=== PATIENT | female | born 1965 | race African-American/Black ===

== ENCOUNTER 2017-04-18 05:36 | Day surgery (SDC) | payer BC, OTHER ==
[~2017-04-18] VITALS: Ht 157.5 cm; Wt 44.8 kg
[~2017-04-18 05:36] MED LIST: AMLO-145 PO; ONDA4TAB96 PO; PANT40TA3 PO; SUMA25TA34 PO
--- NOTE | 2017-04-18 07:49 | OPPN ---
Date/Time of Note Date/Time of Note DATE: 04/18/17 TIME: 07:48 Operative Report Preoperative Diagnosis Abdominal pain Postoperative Diagnosis Status post partial gastrectomy Anastomotic ulcers Gastritis Residual food in the stomach Operation/Procedure Performed Esophagogastroduodenoscopy and biopsy Surgeon see signature line anesthetic assistant None Anesthesia: moderate sedation Estimated blood loss: none Transfusion Required none Specimen Gastric mucosal biopsy Grafts/Implants none Complications none YOANDY SHEN MD Apr 18, 2017 07:49
--- NOTE | 2017-04-18 07:49 | OPPN ---
Date/Time of Note Date/Time of Note DATE: 04/18/17 TIME: 07:48 Operative Report Preoperative Diagnosis Abdominal pain Postoperative Diagnosis Status post partial gastrectomy Anastomotic ulcers Gastritis Residual food in the stomach Operation/Procedure Performed Esophagogastroduodenoscopy and biopsy Surgeon see signature line prosthetic assistant None Anesthesia: moderate sedation Estimated blood loss: none Transfusion Required none Specimen Gastric mucosal biopsy Grafts/Implants none Complications none YOANDY SHEN MD Apr 18, 2017 07:49
--- NOTE | 2017-04-18 07:49 | OPPN ---
Date/Time of Note Date/Time of Note DATE: 04/18/17 TIME: 07:48 Operative Report Preoperative Diagnosis Abdominal pain Postoperative Diagnosis Status post partial gastrectomy Anastomotic ulcers Gastritis Residual food in the stomach Operation/Procedure Performed Esophagogastroduodenoscopy and biopsy Surgeon see signature line grants and contracts assistant None Anesthesia: moderate sedation Estimated blood loss: none Transfusion Required none Specimen Gastric mucosal biopsy Grafts/Implants none Complications none YOANDY SHEN MD Apr 18, 2017 07:49
[2017-04-18] MEDS ORDERED: FENTAnyl 50 MCG/ML VIAL ONE (07:54)
[2017-04-18] MEDS ORDERED: MIDAZOLAM 1 MG/ML 2 ML INJ ONE ×2 (07:54)
[2017-04-18 08:11] VITALS: BP 112/79; RESP 14
--- NOTE | 2017-04-18 09:13 | GILP ---
DATE OF PROCEDURE: 04/18/2017 NAME OF PROCEDURE: Esophagogastroduodenoscopy and biopsy. SURGEON: Yoandy Farrell MD PREOPERATIVE DIAGNOSIS: Abdominal pain. POSTOPERATIVE DIAGNOSES 1. Status post partial gastrectomy. 2. Multiple anastomotic ulcers. 3. Gastritis. 4. Gastric mucosal biopsies were taken for Helicobacter pylori test. 5. Residual food in the stomach. INDICATION FOR THE PROCEDURE: Ms. Sue Knight is a 52-year-old female patient who had upper ab dominal pain, not responding to therapy. She had history of gastric ulcers for which she has underg one surgery. The procedure and possible complications are well explained to the patient, she understood and conse nted to the procedure. DESCRIPTION OF PROCEDURE: Under the influence of fentanyl and Versed, the gastroscope was carefully introduced into the esophagus and under direct vision, it was advanced to the stomach and through t he anastomosis into the small bowel loops. FINDINGS: ESOPHAGUS: Normal. STOMACH: The patient was status post partial gastrectomy. She had some residual food in the stomac h. She had gastritis. Gastric mucosal biopsies were taken for H. pylori test. DUODENUM: The patient had multiple anastomotic ulcers. She tolerated the procedure very well and there were no complication from the procedure. At the end of the procedures, she was awake with stable vital signs and she was discharged home to the care of her family. IMPRESSION: Please see postoperative diagnoses. PLAN: 1. Nexium 24 hours p.o. q.a.m. 2. Carafate 1 g p.o. t.i.d. a.c. 3. Await Helicobacter pylori test report. Dictated By: YOANDY LUDWIG/WICHO Conf#: [id number] DID#: [id number]
--- NOTE | 2017-04-19 09:19 | CONS ---
DATE OF ADMISSION: 04/18/2017 DATE OF CONSULTATION: PATIENT NAME: SUE KNIGHT PREOPERATIVE GASTROENTEROLOGY CONSULTATION NOTE Thank you very much for this kind referral. HISTORY OF PRESENT ILLNESS: Ms. Sue nKight is a 52-year-old female patient who has been refer red to me for further evaluation of upper abdominal pain, not completely responding to therapy with pantoprazole 40 mg twice a day. The patient has history of gastric ulcer for which she has undergon e surgery twice. She is not on any nonsteroidal anti-inflammatory agents. Her appetite has been so mewhat poor, but there is no significant weight loss. She is status post cholecystectomy, no histor y of liver disease. She is hypertensive. No heart disease, lung problem or kidney disease. The pat ient had colonoscopy 2 years ago, done by another chief solution architect, and no colon neoplasm was iden tified. She is a smoker. She denies alcohol abuse. She is status post cholecystectomy, hysterecto my and surgeries for small-bowel obstruction. NO DRUG ALLERGIES. MEDICATIONS: Pantoprazole, amlodipine. She is 5 feet 2 inches tall, weighs 95 pounds. Normal heart sounds. Lungs are clear. Abdomen soft. No masses. Normal bowel sounds. Normal neurologic exam. IMPRESSION: 1. Upper abdominal pain, not responding to therapy with pantoprazole 40 mg p.o. b.i.d. 2. Status post surgery twice for gastric ulcers. 3. The patient had a negative colonoscopy 2 years ago. 4. Hypertension. 5. Status post cholecystectomy and hysterectomy and surgery for small-bowel obstruction. 6. The patient is a smoker. PLAN: 1. The patient was strongly advised to stop smoking. 2. Continue pantoprazole. 3. Endoscopic examination for further evaluation. The procedure and possible complications are well explained to the patient. She understands and con sents to the procedure. I thank you once again. With warmest personal regards, Dictated By: YOANDY LUDWIG/WICHO Conf#: [id number] DID#: [id number]
--- NOTE | 2017-04-19 09:19 | CONS ---
DATE OF ADMISSION: 04/18/2017 DATE OF CONSULTATION: PATIENT NAME: SUE KNIGHT PREOPERATIVE GASTROENTEROLOGY CONSULTATION NOTE Thank you very much for this kind referral. HISTORY OF PRESENT ILLNESS: Ms. Sue Knight is a 52-year-old female patient who has been refer red to me for further evaluation of upper abdominal pain, not completely responding to therapy with pantoprazole 40 mg twice a day. The patient has history of gastric ulcer for which she has undergon e surgery twice. She is not on any nonsteroidal anti-inflammatory agents. Her appetite has been so mewhat poor, but there is no significant weight loss. She is status post cholecystectomy, no histor y of liver disease. She is hypertensive. No heart disease, lung problem or kidney disease. The pat ient had colonoscopy 2 years ago, done by another operator assistant i cementing, and no colon neoplasm was iden tified. She is a smoker. She denies alcohol abuse. She is status post cholecystectomy, hysterecto my and surgeries for small-bowel obstruction. NO DRUG ALLERGIES. MEDICATIONS: Pantoprazole, amlodipine. She is 5 feet 2 inches tall, weighs 95 pounds. Normal heart sounds. Lungs are clear. Abdomen soft. No masses. Normal bowel sounds. Normal neurologic exam. IMPRESSION: 1. Upper abdominal pain, not responding to therapy with pantoprazole 40 mg p.o. b.i.d. 2. Status post surgery twice for gastric ulcers. 3. The patient had a negative colonoscopy 2 years ago. 4. Hypertension. 5. Status post cholecystectomy and hysterectomy and surgery for small-bowel obstruction. 6. The patient is a smoker. PLAN: 1. The patient was strongly advised to stop smoking. 2. Continue pantoprazole. 3. Endoscopic examination for further evaluation. The procedure and possible complications are well explained to the patient. She understands and con sents to the procedure. I thank you once again. With warmest personal regards, Dictated By: YOANDY LUDWIG/WICHO Conf#: [id number] DID#: [id number]
== END 2017-04-18 11:57 | disposition home or self-care (01) ==
LOC: GIL 05:36
PROVIDERS: ATTEND Internal Medicine Gastroenterology
DX: K29.70 Gastritis, unspecified, without bleeding (principal); K26.9 Duodenal ulcer, unspecified as acute or chronic, without hemorrhage or perforation; I10 Essential (primary) hypertension; F17.200 Nicotine dependence, unspecified, uncomplicated; Z90.49 Acquired absence of other specified parts of digestive tract; Z90.710 Acquired absence of both cervix and uterus
CPT/HCPCS: 43239; 87081; J2250; J3010; Z7610

== ENCOUNTER 2018-04-07 07:20 | Day surgery (SDC) | END 2018-04-07 09:49 | disposition home or self-care (01) ==

== ENCOUNTER 2019-01-03 10:10 | Day surgery (SDC) | payer BC ==
[~2019-01-03] VITALS: Ht 157.5 cm; Wt 42.2 kg
[2019-01-03] MEDS ORDERED: LANS15CA5 PO (11:02)
[2019-01-03] MEDS ORDERED: LOPERAMIDE HCL (11:02)
[2019-01-03 11:06] VITALS: Ht 157.5 cm; Wt 42.2 kg
[2019-01-03 11:55] VITALS: BP 130/92; PULSE 75; RESP 20
--- NOTE | 2019-01-03 12:18 | PREAC ---
Date/Time of Note Date/Time of Note DATE: 01/03/19 TIME: 12:17 Anesthesia Eval and Record Evaluation Time Pre-Procedure Interview DATE: 01/03/19 TIME: 12:17 Age 53 Sex female NPO: 8 hrs Preoperative diagnosis PUD, OCCULT BLOOD IN STOOL Planned procedure EGD, COLONOSCOPY Past Medical History Past Medical History: Includes Cardio: HTN Pulm: Smoking Hx Surgery & Anesthesia Issues No known issue Meds Anticoagulation: No Beta Ralph within 24 hr: No Reason Beta Ralph not given: Pt. not on B-Ralph Reported Medications [Loperamide Hcl] No Conflict Check 01/03/19 Lansoprazole* (Lansoprazole*) 15 Mg Capsule.dr, 15 MG PO DAILY, CAP 01/03/19 Amlodipine Besylate* (Amlodipine Besylate*) 5 Mg Tablet, 5 MG PO DAILY, TAB 05/26/15 Discontinued Reported Medications Ondansetron Hcl* (Ondansetron Hcl*) 4 mg -ODT Tab.disper, 4 MG PO Q6H PRN for NAUSEA AND OR VOMITING, TAB 05/26/15 Sumatriptan Succinate* (Imitrex*) 25 Mg Tablet, 25 MG PO 09/04/12 Pantoprazole* (Protonix*) 40 Mg Tablet.dr, 40 MG PO 09/04/12 Meds reviewed: Yes Allergies Coded Allergies: Sulfa (Sulfonamide Antibiotics) (Verified Allergy, Intermediate, N/V, 01/28/14) Cephalexin Monohydrate (Verified Allergy, Unknown, 01/28/14) NAUSEA sulfamethoxazole (Verified Allergy, Unknown, 01/28/14) RAPID HEARTBEAT FEELING OF PASSING OUT trimethoprim (Verified Allergy, Unknown, 01/28/14) RAPID HEARTBEAT FEELING OF PASSING OUT Allergies Reviewed: Yes Labs/Studies Labs Reviewed: Reviewed by anesthesiologist test: N/A Pre-procedure Exam Last vitals Vital Signs Date Temp Pulse Resp B/P (MAP) Pulse Ox O2 O2 Flow FiO2 Time Delivery Rate 01/03/19 97.5 75 20 130/92 99 Room Air 11:55 (105) Airway: Adequate mouth opening, Adequate thyromental dist Mallampati: Mallampati II Teeth: Normal Lung: Normal Heart: Normal ASA Physical Status ASA physical status: 2 Emergency: None Planned Anesthetic General/MAC: MAC Planned Pain Management Parenteral pain med Pre-operative Attestations Prior to commencing anesthesia and surgery, the patient was re-evaluated, there was verification of: *The patient's identity *The results of appropriate recent lab work and preoperative vital signs *The above evaluation not changing prior to induction *Anesthetic plan, risk benefits, alternative and complications discussed with patient/family; questions answered; patient/family understands, accepts and wishes to proceed. Shantanu Brunner M.D. Jan 03, 2019 12:18
[2019-01-03] MEDS ORDERED: LIDOCAINE 2% (SDV) 5 ML INJ ONE (12:19)
[2019-01-03] MEDS ORDERED: FENTAnyl 50 MCG/ML VIAL ONE (12:19)
[2019-01-03] MEDS ORDERED: PROPOFOL 40 ML ONE (12:19)
--- NOTE | 2019-01-03 13:15 | PAC ---
Date/Time of Note Date/Time of Note DATE: 01/03/19 TIME: 13:15 Post-Anesthesia Notes Post-Anesthesia Note Last documented vital signs Vital Signs Date Temp Pulse Resp B/P (MAP) Pulse Ox O2 O2 Flow FiO2 Time Delivery Rate 01/03/19 97.5 75 20 130/92 99 Room Air 11:55 (105) Activity: WNL Respiratory function: WNL Cardiovascular function: WNL Mental status: Baseline Pain reasonably controlled: Yes Hydration appropriate: Yes Nausea/Vomiting absent: Yes Shantanu Brunner M.D. Jan 03, 2019 13:15
== END 2019-01-03 16:13 | disposition home or self-care (01) ==
LOC: GIL 10:10
PROVIDERS: ATTEND Internal Medicine Gastroenterology
DX: Z12.11 Encounter for screening for malignant neoplasm of colon (principal); K25.9 Gastric ulcer, unspecified as acute or chronic, without hemorrhage or perforation; I10 Essential (primary) hypertension; I73.9 Peripheral vascular disease, unspecified; F17.200 Nicotine dependence, unspecified, uncomplicated
CPT/HCPCS: 43239; 45378; J3010; Z7610; 88305